=== PATIENT | male | born 2000 | race Caucasian/White ===

== ENCOUNTER 2019-04-26 16:21 | Emergency (ER) | payer BC ==
[~2019-04-26] VITALS: Ht 175.3 cm; Wt 70.3 kg
[2019-04-26 16:30] VITALS: BP 114/70
--- NOTE | 2019-04-26 16:30 | NUR ---
ED Nurse Note: Pt walked into ED w/ c/o N&V for 1 month. Pt states he vomits almost every meal and can't hold food down. Pt states he has history of ADHD and PTSD and is requesting for renewal of medications. He is alert and orientedx4, ambulatory.
[2019-04-26] MEDS ORDERED: Dicyclomine HCl 10mg/5ml oral soln ORAL ONE (16:45)
--- NOTE | 2019-04-26 16:59 | NUR ---
ED Nurse Note: Blood labs and urine sent to lab.
[2019-04-26 17:18] LABS: APPEARANCE,URINE CLEAR; BASOPHILS % (AUTO) 1.9 % (0.0-2.0); BILIRUBIN, URINE NEGATIVE (NEGATIVE); COLOR,URINE PALE YELLOW; EOSINOPHILS % (AUTO) 2.5 % (0.0-3.0); GLUCOSE, URINE (UA) NEGATIVE (NEGATIVE); HEMATOCRIT 43.6 % (42.0-52.0); HEMOGLOBIN 14.6 G/DL (14.2-18.0); KETONES,URINE NEGATIVE (NEGATIVE); LEUKOCYTE ESTERASE ,URINE NEGATIVE (NEGATIVE); LYMPHOCYTES % (AUTO) 44.7 % (20.0-45.0); MEAN CORPUSCULAR VOLUME 91 FL (80-99); MONOCYTES % (AUTO) 6.2 % (1.0-10.0); NEUTROPHILS % (AUTO) 44.7 % (45.0-75.0); NITRITE,URINE NEGATIVE (NEGATIVE); PH,URINE 7 (4.5-8.0); PLATELET COUNT 185 K/UL (150-450); PROTEIN,URINE NEGATIVE (NEGATIVE); RED BLOOD COUNT 4.77 M/UL (4.70-6.10); UROBILINOGEN,URINE NORMAL MG/DL (0.0-1.0); WHITE BLOOD COUNT 4.4 K/UL (4.8-10.8)
[2019-04-26 17:25] LABS: ANION GAP 14 mmol/L (5-15); BLOOD UREA NITROGEN 8 mg/dL (7-18); CALCIUM 9.2 MG/DL (8.5-10.1); CARBON DIOXIDE 26 MMOL/L (21-32); CHLORIDE 106 MMOL/L (98-107); POTASSIUM 3.7 MMOL/L (3.5-5.1); SODIUM 146 MMOL/L (136-145)
[2019-04-26 17:32] LABS: ALANINE AMINOTRANSFERASE 23 U/L (12-78); ALBUMIN 4.2 G/DL (3.4-5.0); ALBUMIN/GLOBULIN RATIO 1.2 (1.0-2.7); ALKALINE PHOSPHATASE 67 U/L (46-116); ASPARTATE AMINO TRANSFERASE 13 U/L (15-37); BILIRUBIN,TOTAL 0.3 MG/DL (0.2-1.0)
--- NOTE | 2019-04-26 17:53 | Emergency Room Report ---
History of Present Illness General Chief Complaint: General Complaint Source: Patient Present Illness HPI 19-year-old male story of ADHD currently on Adderall coming from a psychiatric here complaining of over 1 month of few bouts of nonbloody emesis and diarrhea. Denies fever and chills, diffuse abdominal pain, recent travel. Patient reports that there has been some changes in his dosing of his medication. Reports that he was being seen at a different psychiatric facility, had a prescription for Adderall however the prescription did not get transferred to a new facility and he has been out of Adderall for 2 days. Patient appears to be stable with stable vital signs. Is requesting a refill on Adderall. Patient reports that his psychiatrist has not been giving it to him in the past few days. Reports that his psychiatrist at the new facility is trying new approaches. Patient is in no distress. Denies recent URI symptoms. Denies urinary frequency and urgency. Denies drug use, alcohol intake. Also asked for refill of albuterol for his asthma. Denies chest pain, shortness of breath , palpitation, and other associated symptoms. Allergies: Coded Allergies: No Known Allergies (Unverified , 04/26/19) Patient History Past Medical History: see triage record Past Surgical History: none Pertinent Family History: none Immunizations: UTD Reviewed Nursing Documentation: PMH: Agreed; PSxH: Agreed Nursing Documentation-PMH Past Medical History: No History, Except For Hx Cardiac Problems: No - ADHD, PTSD Review of Systems All Other Systems: negative except mentioned in HPI Physical Exam Vital Signs Date Time Temp Pulse Resp B/P (MAP) Pulse Ox O2 Delivery O2 Flow Rate FiO2 04/26/19 16:26 98.1 104 19 117/74 (88) 96 Room Air 04/26/19 16:30 95 Sp02 EP Interpretation: reviewed, normal General Appearance: no apparent distress, alert, GCS 15, non-toxic Head: normocephalic, atraumatic Eyes: bilateral eye normal inspection, bilateral eye PERRL ENT: hearing grossly normal, normal pharynx, no angioedema, normal voice Neck: full range of motion, supple, thyroid normal, no meningismus, supple/symm /no masses Respiratory: chest non-tender, lungs clear, normal breath sounds, no rhonchi, no respiratory distress, no retraction, no wheezing, speaking full sentences Cardiovascular #1: regular rate, rhythm, no edema, no murmur Gastrointestinal: normal bowel sounds, non tender, soft, no mass, no organomegaly, no peritonitis, no bruit, non-distended, no guarding, no hernia, no pulsatile mass, no rebound Genitourinary: no CVA tenderness Musculoskeletal: back normal, no calf tenderness Neurologic: alert, motor strength/tone normal, oriented x3, sensory intact, responsive, speech normal Psychiatric: judgement/insight normal, memory normal, mood/affect normal, no suicidal/homicidal ideation Skin: no rash Lymphatic: no adenopathy Medical Decision Making PA Attestation All my diagnosis and treatment plans were reviewed ad discussed with my supervising physician Dr. Vanessa Diagnostic Impression: Primary Impression: Chronic diarrhea Additional Impressions: Chronic nausea Asthma ER Course 19-year-old male story of ADHD currently on Adderall coming from a psychiatric here complaining of over 1 month of few bouts of nonbloody emesis and diarrhea. Denies fever and chills, diffuse abdominal pain, recent travel. Patient reports that there has been some changes in his dosing of his medication. Reports that he was being seen at a different psychiatric facility, had a prescription for Adderall however the prescription did not get transferred to a new facility and he has been out of Adderall for 2 days. Patient appears to be stable with stable vital signs. Is requesting a refill on Adderall. Patient reports that his psychiatrist has not been giving it to him in the past few days. Reports that his psychiatrist at the new facility is trying new approaches. Patient is in no distress. Denies recent URI symptoms. Denies urinary frequency and urgency. Denies drug use, alcohol intake. Also asked for refill of albuterol for his asthma. Denies chest pain, shortness of breath , palpitation, and other associated symptoms. Ddx considered but are not limited to: appendicitis, cholecystis, gastritis, gastroenteritis, UTI, pyelonephritis, SBO, diverticulitis, influenza with GI manifestation, gastric ulcer Vital signs: are WNL, pt. is afebrile H&PE are most consistent with: Chronic diarrhea and nausea most likely secondary to changes in the dosing of his medication, ORDERS: No CT scan or other imaging of the abdomen needed as patient is not guarding and nontender to palpation, CBC, CMP, UA, tox screen, serum alcohol level, lipase, albuterol, Zofran, dicyclomine, omeprazole ED INTERVENTIONS: NS bolus, Zofran, Pepcid DISCHARGE: At this time pt. is stable for d/c to home. Will provide printed patient care instructions, and any necessary prescriptions. Care plan and follow up instructions have been discussed with the patient prior to discharge. Patient for further evaluation, ova and parasite as well as H. pylori testing. Also follow-up with psychiatrist in regards to Adderall as patient has an active prescription for Adderall based on cures history and patient needs to be filled by a psychiatrist. Patient agrees. Also gave a list of free clinics. If worsening symptoms return to the emergency room Last Vital Signs Date Time Temp Pulse Resp B/P (MAP) Pulse Ox O2 Delivery O2 Flow Rate FiO2 04/26/19 16:30 98.1 78 19 114/70 96 Room Air 04/26/19 16:30 95 Disposition: HOME, SELF-CARE Condition: Stable Scripts Omeprazole (OMEPRAZOLE) 20 Mg Tablet.dr 20 MG ORAL DAILY, #30 TAB Prov: Pamela Hernandez 04/26/19 Dicyclomine Hcl* (DICYCLOMINE HCL*) 10 Mg Capsule 10 MG ORAL QID, #20 CAP Prov: Pamela Hernandez 04/26/19 Ondansetron (Zofran) 4 Mg Tablet 4 MG ORAL Q6H PRN for Nausea & Vomiting, #14 TAB Prov: Pamela Hernandez 04/26/19 Albuterol Sulfate (VENTOLIN HFA) 18 Gm Hfa.aer.ad 2 PUFFS INH EVERY 6 HOURS, #18 GM 0 Refills Prov: Pamela Hernandez 04/26/19 Referrals: NOT CHOSEN IPA/,REFERRING (PCP) Patient Instructions: Asthma, Adult, [id number], Chronic Diarrhea, Nausea and Vomiting, Adult, [id number] Additional Instructions: follow up with primary Dr for refills on Adderral and also with psychiatrist. have primary Dr order stool culture, ova and parasite Pamela Hernandez Apr 26, 2019 17:53
[2019-04-26] MEDS ORDERED: ZOFRAN4 M1 ORAL (17:56)
[2019-04-26] MEDS ORDERED: DICYCLOMINE HCL10 MG ORAL (17:56)
[2019-04-26] MEDS ORDERED: OMEPRAZOLE20 M3 ORAL (17:56)
[2019-04-26] MEDS ORDERED: VENTOLIN HFA18 GM INH (17:56)
[2019-04-26 18:06] VITALS: BP 112/73
--- NOTE | 2019-04-26 18:06 | NUR ---
ER DISCHARGE NOTE: Patient is cleared to be discharged per ERMD, pt is aox4, on room air, with stable vital signs. pt was given dc and prescription instructions, pt was able to verbalize understanding, pt id band and iv site removed without complications. pt is able to ambulate with steady gait. pt took all belongings. Pt educated about f/u MD visits.
== END 2019-04-26 18:08 | disposition home or self-care (01) ==
LOC: EMR 17:30
DX: K52.9 Noninfective gastroenteritis and colitis, unspecified (principal); R11.0 Nausea; J45.909 Unspecified asthma, uncomplicated; F90.9 Attention-deficit hyperactivity disorder, unspecified type; Z79.51 Long term (current) use of inhaled steroids
CPT/HCPCS: 36415; 80053; 80307; 81003; 83690; 85025; 96361; 96374; 96375; 99284; J2405; J7030; S0028